=== PATIENT | female | born 1965 | race Caucasian/White ===

== ENCOUNTER 2017-12-30 07:25 | Inpatient (IN) ==
--- NOTE | 2017-12-29 17:16 | Discharge Summary ---
<Parish,Amanda E - Last Filed: 12/29/17 17:13> Date of Encounter: 12/29/17 - Discharge Diagnosis (1) Osteoarthritis of right knee Priority: Primary Status: Chronic Qualifiers: Osteoarthritis type: unspecified Qualified Code(s): M17.11 - Unilateral primary osteoarthritis, right knee (2) HTN (hypertension) Priority: Secondary Status: Chronic Qualifiers: Hypertension type: unspecified Qualified Code(s): I10 - Essential (primary ) hypertension (3) Rheumatoid arthritis Priority: Secondary Status: Chronic Qualifiers: Rheumatoid arthritis location: unspecified site Rheumatoid factor presence : unspecified presence Qualified Code(s): M06.9 - Rheumatoid arthritis, unspecified (4) HLD (hyperlipidemia) Priority: Secondary Status: Chronic Qualifiers: Hyperlipidemia type: unspecified Qualified Code(s): E78.5 - Hyperlipidemia , unspecified (5) Asthma Priority: Secondary Status: Chronic Qualifiers: Asthma severity: unspecified severity Asthma persistence: unspecified Asthma complication type: unspecified Qualified Code(s): J45.909 - Unspecified asthma, uncomplicated (6) Enlarged heart Priority: Secondary Status: Chronic (7) Obesity Priority: Secondary Status: Chronic Qualifiers: Obesity type: unspecified obesity type Obesity classification: unspecified obesity classification Serious obesity comorbidity presence: unspecified whether serious comorbidity present Qualified Code(s): E66.9 - Obesity, unspecified (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 [Rx] OxyCODONE Immed Rel [Roxicodone 5 MG] 5 mg PO Q6HR PRN 7 Days #28 tablet [Rx] Lisinopril/Hydrochlorothiazide [Zestoretic 20-12.5 mg Tablet] 1 tab PO HS [History] Mirtazapine [Remeron] 15 mg PO HS 12/30/17 [History] Allergies/Adverse Reactions: 3 Allergy/AdvReac Type Severity Reaction Status Date / Time meloxicam AdvReac Palpitation Verified 12/30/17 08:02 s Primary care physician: Kevin Garner MD - Patient Status Disposition: Home, Self-Care Condition: Good - Discharge Instructions Follow Up With: Kevin Garner MD [Primary Care Provider] - - Hospital Course Hospital course: Ms. Lr is a 52 year old female - Time Spent with Patient Total time spent providing and/or coordinating discharge services: <JoseDimitry Nix - Last Filed: 01/01/18 09:18> Date of Encounter: 01/01/18 Time of Encounter: 09:17 - Discharge Diagnosis (1) Morbid obesity with BMI of 40.0-44.9, adult Priority: Secondary Status: Chronic (2) Osteoarthritis of right knee Priority: Primary Status: Chronic Qualifiers: Osteoarthritis type: unspecified Qualified Code(s): M17.11 - Unilateral primary osteoarthritis, right knee (3) HTN (hypertension) Priority: Secondary Status: Chronic Qualifiers: Hypertension type: unspecified Qualified Code(s): I10 - Essential (primary ) hypertension (4) Rheumatoid arthritis Priority: Secondary Status: Chronic Qualifiers: Rheumatoid arthritis location: unspecified site Rheumatoid factor presence : unspecified presence Qualified Code(s): M06.9 - Rheumatoid arthritis, unspecified (5) HLD (hyperlipidemia) Priority: Secondary Status: Chronic Qualifiers: Hyperlipidemia type: unspecified Qualified Code(s): E78.5 - Hyperlipidemia , unspecified (6) Asthma Priority: Secondary Status: Chronic Qualifiers: Asthma severity: unspecified severity Asthma persistence: unspecified Asthma complication type: unspecified Qualified Code(s): J45.909 - Unspecified asthma, uncomplicated (7) Enlarged heart Priority: Secondary Status: Chronic (8) 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 Lr is a 52 year old female s/p right total knee replacement The patient had an uneventful postoperative course. They received antibiotics and physical therapy and were discharged in stable condition. There will follow -up in the office in 2 weeks. - Time Spent with Patient Total time spent providing and/or coordinating discharge services:
--- NOTE | 2017-12-29 17:18 | Physician Discharge Referral ---
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 For more information, call the [employer] Tobacco Quit Line at 2-450-CZDU-NOW. - Dressing/Wound Care Site: right knee Type of Dressing/Treatments w/Frequency: Opsite placed. Keep dressing intact until first follow up appointment. If > 50% saturated, notify office, remove dressing and place appropriate dressing back in place. Leave Zipline intact. Opsite dressing is water resistant, not water- proof. OK to shower, but do not get dressing wet. - Diet/Nutrition Diet/Nutrition Orders: Regular - Activity Activity Orders: Up ad lidya, Ambulate, Chair, Walker Activity: List: Total Knee replacement Precautions x 6 weeks Apply cold therapy wrap 3-6x/day for 20 minutes at a time. Encourage ambulation throughout the day and incentive spirometer 10x/hour. Elevate affected extremity above heart as tolerated. Brace: Wear knee immobilizer at night x 2 weeks. - Services Needed Following services are medically necessary services: Nursing, Home Health Aide, Physical Therapy, Occupational Therapy - Transfer Medications Prescriptions: OxyCODONE Immed Rel [Roxicodone 5 MG] 5 mg PO Q6HR PRN 7 Days #28 tablet PRN Reason: Severe Pain Aspirin Enteric Coated [Aspirin EC] 325 mg PO QAM 21 Days #21 tablet.dr [place] Medications: Aspirin Enteric Coated [Aspirin EC] 81 mg PO DAILY 08/17/15 [History] Duloxetine [Cymbalta] 30 mg PO BID 08/17/15 [History] Lisinopril [Zestril] 10 mg PO HS 08/17/15 [History] Tate-3S/Dha/Epa/Fish Oil [Fish Oil 1,200 mg Softgel] 1 each PO DAILY 08/17/15 [ History] Pravastatin Sodium [Pravachol] 40 mg PO HS 08/17/15 [History] Magic Mouthwash [Magic Mouthwash BLM] 10 ml PO QID PRN #240 ml 01/21/17 [Rx] predniSONE [PredniSONE] 60 mg PO DAILY 5 Days tablet 01/21/17 [Rx] Aspirin Enteric Coated [Aspirin EC] 325 mg PO QAM 21 Days #21 tablet. [Rx] OxyCODONE Immed Rel [Roxicodone 5 MG] 5 mg PO Q6HR PRN 7 Days #28 tablet [Rx] Allergies/Adverse Reactions: 3 Allergy/AdvReac Type Severity Reaction Status Date / Time meloxicam Allergy Palpitation Verified 08/09/17 13:56 s Certification: Further, I certify that my clinical findings support that this patient is homebound (i.e. absences from home require considerable and taxing effort and are for medical reasons or uatsdin services or infrequently or short duration when for other reasons) because: Homebound Reason: Post-surgery restriction and or conditions limit ability to leave home Attestation: My signature below is to certify that this patient is under my care and that I, or nurse practitioner, or a physician nurse practitioner physicians assistant working with me, has a face-to- face encounter with this patient.
[2017-12-30] MEDS ORDERED: Albuterol 2.5 MG/3 ML NEBULIZER IH ONE (07:45)
[2017-12-30] MEDS ORDERED: CeFAZolin Syr 3,000MG/30 ML 3,000 MG/30 ML SYRINGE IVPB ONE (07:45)
[2017-12-30] MEDS ORDERED: Ringers Solution, Lactated 1,000 ML IVC SCH ×2 (07:45→13:17)
[2017-12-30] MEDS ORDERED: Lidocaine -MPF 1% 2 ML VIAL ID ONE (07:45)
--- NOTE | 2017-12-30 07:59 | History & Physical Report ---
Date of Encounter: 12/30/17 Time of Encounter: 07:59 24 Hour HP Update - Instructions Instructions: If the History and Physical is less than 30 days old and was completed prior to A.M. admission and or procedure and has NOT been updated on calendar day of procedure please complete this update prior to performing procedure. - Update Patient reports changes in Medical Condition: No Changes in examination, assessment, or condition: No Changes in Medication: No Preop tests/diagnostics Reviewed: Yes Surgery Remains Indicated: Yes Consent for Planned Operative Procedure(s) Verified: Yes - Pre-Operative Checklist Preoperative Checklist Indicated: No Prophylactic Antibiotic Ordered: Yes Is VTE Prophylaxis Indicated?: Yes
--- NOTE | 2017-12-30 08:07 | Anesthesia Evaluation PreOp ---
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 [Rx] OxyCODONE Immed Rel [Roxicodone 5 MG] 5 mg PO Q6HR PRN 7 Days #28 tablet [Rx] Lisinopril/Hydrochlorothiazide [Zestoretic 20-12.5 mg Tablet] 1 tab PO HS [History] Mirtazapine [Remeron] 15 mg PO HS 12/30/17 [History] 3 Allergy/AdvReac Type Severity Reaction Status Date / Time meloxicam AdvReac Palpitation Verified 12/30/17 08:02 s - Meds/Allergy Pre-op Review Medications Reviewed: Yes Allergies Reviewed: Yes Beta Blockers on Current Med List: No Anesthesia Results - Labs Laboratory Tests 12/12/17 12/12/17 12/12/17 09:15 09:15 09:15 WBC 8.9 Hgb 13.6 Hct 41.6 Plt Count 288 PT 10.6 INR 1.0 APTT 29.1 Sodium 139 Potassium 4.4 BUN 14 Creatinine 0.82 - Imaging EKG: report reviewed (08/09/2017 SINUS RHYTHM LOW QRS VOLTAGE IN PRECORDIAL LEADS PATTERN CONSISTENT WITH PULMONARY DISEASE POOR R WAVE PROGRESSION Left axis deviation) Additional studies: 08/14/2017 Echo Impressions: LVEF 60%. Normal LV chamber size, wall thickness and function. Moderate left ventricular diastolic dysfunction. Normal right ventricular structure and function. No evidence of pulmonary hypertension. No significant valvular dysfunction. Anesthesia Exam O2 Sat Height 1.71 m Height 1.71 m Height 1.71 m Weight 122.47 kg Weight 122.47 kg Weight 122.47 kg O2 Sat by Pulse Oximetry 96 Vital Signs Temp Pulse Resp BP Pulse Ox 98.7 F 82 18 125/82 96 12/30/17 07:57 12/30/17 07:57 12/30/17 07:57 12/30/17 07:57 12/30/17 07:57 Height: 5'7.5" Weight: 270 lbs NPO (# of Hours): 8 Pain Scale: 3 (right leg) Pain Scale Used: Numeric (1 - 10) - HEENT Pupil (Motor): EOMI Mallampati: II Teeth: Normal Oral Opening: Greater than 3 - TUBE MILL OPERATOR LOC: Oriented TUBE MILL OPERATOR Motor: Normal RUE, Normal LUE, Normal RLE, Normal LLE, Normal Face TUBE MILL OPERATOR Sensory: Normal: LUE, RLE, LLE, Face, Deficit: RUE - Cardiac Rhythm: Regular Murmur: None - Pulmonary Breath Sounds: bilateral Clear Respiratory Effort: Symmetrical Anesthesia Assess/Plan ASA Score: 2 Modified Yu Scale for Level of Consciousness: Cooperative, oriented, and tranquil Anesthetic Plan: Regional Monitoring Plan: Standard Monitors Recovery Plan: PACU
[2017-12-30] MEDS ORDERED: Lidocaine -MPF 2% 2 ML VIAL ONE ×2 (08:59)
[2017-12-30] MEDS ORDERED: *HR* Propofol 200 MG/20 ML VIAL IVP ONE ×3 (08:59→11:31)
[2017-12-30] MEDS ORDERED: *HR* Midazolam HCl 2 MG/2 ML VIAL ONE (08:59)
[2017-12-30] MEDS ORDERED: Ketorolac 30 MG/ML VIAL ONE (08:59)
[2017-12-30] MEDS ORDERED: *HR* FentaNYL (PF) 100 MCG/2 ML VIAL ONE (08:59)
[2017-12-30] MEDS ORDERED: Propofol 500 MG/50 ML INFUS..BTL ONE (08:59)
[2017-12-30] MEDS ORDERED: Ethanol\\Acetic Acid\\Na Ace\\Ben 1,000 ML IRRIG.SOLN IR ONE (09:46)
[2017-12-30] MEDS ORDERED: *HR* OxyCODONE/APAP 5/325 TABLET PO PRN (10:40)
--- NOTE | 2017-12-30 10:44 | Anesthesia Procedures ---
Date of Encounter: 12/30/17 Time of Encounter: 10:10 Procedures: Anesthesia - Epidural/Spinal Patient ID/Chart reviewed: Yes Supplemental Oxygen: Nasal Cannula Supplemental Oxygen Rate (L/min): 2 Sedation: Versed (mg): 2 Sedation: Fentanyl (mcg): 80 (20MCG IN SPINAL ) Site Prep: Aseptic Technique, Sterile prep and drape, Povidone-Iodine 1% Patient position: upright Local Anesthetic: Lidocaine 1% Interspace Used: L4-L5 Blood: No CSF: Yes Paresthesia: No Spinal Needle Gauge: 24 (PENCAN 3 1/2 SPINAL NEEDLE USED) Spinal Dose: SEE OPERATIONS INTELLIGENCE SUPERINTENDENT NOTE ON ANESTHESIA RECORD Procedure: SEE OPERATIONS INTELLIGENCE SUPERINTENDENT NOTE ON ANESTHESIA RECORD Vitals + FHT's: Vital Signs - Last 8 Hours Temp Pulse Resp BP Pulse Ox 12/30/17 07:57 98.7 F 82 18 125/82 96 Intake and Output 12/29/17 12/30/17 12/30/17 23:59 07:59 15:59 Other: Weight 122.47 kg Patient Weight 12/30/17 23:59 Weight 122.47 kg
[2017-12-30] MEDS ORDERED: Acetaminophen IV 1,000 MG/100 ML INFUS..BTL ONE (11:15)
--- NOTE | 2017-12-30 11:33 | Orthopedic Operative Note ---
Date of procedure: 12/30/17 Pre-op diagnosis: Right knee arthritis Post-op diagnosis: same Procedure: Procedure: Right Total knee replacement Estimated blood loss: 200 cc Hardware: Metal and polyethylene replacement. Strength triathlon Femur: 3 Tibia: 3 tS insert: 9 Patella:36 Exam Under anesthesia: Loss of full extension 10 degrees Procedural Notes: An attempt was made to do a robotic-assisted procedure prior to any bony cuts the robot would not function case was converted to all manual. Patient with a grade 4 arthritic changes patellofemoral joint medial compartment. Operative procedure: The patient was brought to the operating room and placed on the operating room table. After general anesthesia was administered the operative knee was examined. Findings were noted in the exam under anesthesia. The operative extremity was prepped and draped in sterile surgical fashion. The patient received IV antibiotics prior to skin incision. A standard midline incision was made centered over the patella. The incision was made through the skin and subcutaneous tissue. A medial parapatellar tendon approach was performed. Care was taken to preserve tissue along the medial aspect of the patella. And to protect the patella tendon. The deep MCL was released off the medial tibia. The infra patella fat pad was excised. After landmarks were established the robot lost function was unable to proceed robotically. Knee was brought into flexion. Patient does have grade 4 arthritic changes compartment and patellofemoral joint. The entry hole was made for the intramedullary femoral guide. The guide was seated in 6 degrees of valgus. Anterior cut was made followed by the distal cut. The ACL the PCL the medial and the lateral menisci were excised. The tibia was subluxed forward. The entry hole was made for the intramedullary tibial guide. Guide was seated to resect 2 mm off the more abnormal side. The knee was brought into flexion the distal femur was sized to a 3. The femoral guide was seated, the anterior cut was made followed by the posterior condylar cut, followed by the chamfer cuts. The finishing guide was seated the box cut was made and the lug holes were drilled. The tibia was sized to a 3, the tibial tray was seated and prepared with the large drill followed by the fin cutter. Trial reduction revealed full extension no varus valgus instability with the appropriate 9 TS Cori. The patella was everted and cut was made at the level of the insertion of the quadriceps and patella tendon. The patella was sized to 36 the guide was seated and the lug holes are drilled. Trial reduction revealed excellent patella tracking. All trial components were removed all bony surfaces were irrigated. The tibia was cemented first followed by the femur. The 9 TS Cori was seated and the knee was brought into full extension. The patella was cemented and held in place with the patellar holding clamp. After the cement had hardened, the knee sat for 2 minutes with a antibacterial saline solution. The PA closed the knee. The knee was then irrigated out with 2 L of pulse irrigation. The extensor mechanism was closed with #2 FiberWire suture and #2 PDS suture. The subcutaneous tissue was then irrigated and closed deep with #1 PDS suture superficially with 0 PDS suture and skin was closed with skin jeronimo. The patient was then placed in a sterile dressing and a postoperative brace extubated and transferred to recovery room in stable condition. Anesthesia: GETA Surgeon: Dimitry Garcia Was there an acquisitions assistant present: No Estimated blood loss (cc): 200 Condition: stable Disposition: PACU
--- NOTE | 2017-12-30 12:52 | Anesthesia Evaluation Post Op ---
Date of Encounter: 12/30/17 Time of Encounter: 13:00 - Vital Signs Vital Signs: Vital Signs/O2 Sat/Glucose, Most Current Temp Pulse Resp BP Pulse Ox 12/30/17 12:45 97.3 F L 63 16 106/58 98 12/30/17 12:35 97.3 F L 66 16 96/59 99 12/30/17 12:25 65 16 96/59 98 12/30/17 12:15 67 16 96/49 97 12/30/17 12:05 97.1 F L 82 15 89/37 93 - Lungs Lungs: Clear Ascult./Percussion - Airway Airway: Non-obstructed - Cardiovascular Regular Rate - Mental Status Mental Status: Alert & Oriented, Answers Appropriately - Pain Pain Scale: 0 - Nausea Vomiting Nausea Vomiting: Not Present - Hydration Hydration: Ice chips - Discharge PostOp Status: Transfer Patient to floor
[2017-12-30 13:04] LABS: Hematocrit 36.1 % (35.3-44.9); Hemoglobin 11.7 g/dL (11.5-15.4)
[2017-12-30] MEDS ORDERED: Temazepam 15 MG CAPSULE PO PRN (13:17)
[2017-12-30] MEDS ORDERED: Naloxone 0.4 MG/ML INJ IVP PRN (13:17)
[2017-12-30] MEDS ORDERED: MOM Conc 10 ML UD.LIQ PO PRN (13:17)
[2017-12-30] MEDS ORDERED: Sennosides 8.6 MG TABLET PO PRN (13:17)
[2017-12-30] MEDS: Ondansetron 4 MG/2 ML VIAL IVP PRN ×2 (15:22→23:55)
[2017-12-30] MEDS ORDERED: *HR* Enoxaparin 30 MG/0.3 ML SYRINGE SQ SCH (18:00)
[2017-12-30] MEDS: CeFAZolin Syr 3,000MG/30 ML 3,000 MG/30 ML SYRINGE IVPB SCH ×2 (18:00→23:52)
[2017-12-30] MEDS: *HR* Enoxaparin 30 MG/0.3 ML SYRINGE SQ SCH (18:00)
[2017-12-31] MEDS: *HR* OxyCODONE/APAP 5/325 TABLET PO PRN ×2 (00:39→06:22)
[2017-12-31] MEDS: *HR* Enoxaparin 30 MG/0.3 ML SYRINGE SQ SCH ×2 (05:19→16:56)
--- NOTE | 2017-12-31 06:53 | Orthopedics Progress Note ---
Date of Encounter: 12/31/17 Time of Encounter: 06:53 - Assessment and Plan (1) Morbid obesity with BMI of 40.0-44.9, adult Current Visit: Yes Status: Chronic (2) Osteoarthritis of right knee Current Visit: No Status: Chronic Qualifiers: Osteoarthritis type: unspecified Qualified Code(s): M17.11 - Unilateral primary osteoarthritis, right knee (3) HTN (hypertension) Current Visit: No Status: Chronic Qualifiers: Hypertension type: unspecified Qualified Code(s): I10 - Essential (primary ) hypertension (4) Rheumatoid arthritis Current Visit: No Status: Chronic Qualifiers: Rheumatoid arthritis location: unspecified site Rheumatoid factor presence : unspecified presence Qualified Code(s): M06.9 - Rheumatoid arthritis, unspecified (5) HLD (hyperlipidemia) Current Visit: No Status: Chronic Qualifiers: Hyperlipidemia type: unspecified Qualified Code(s): E78.5 - Hyperlipidemia , unspecified (6) Asthma Current Visit: No Status: Chronic Qualifiers: Asthma severity: unspecified severity Asthma persistence: unspecified Asthma complication type: unspecified Qualified Code(s): J45.909 - Unspecified asthma, uncomplicated (7) Enlarged heart Current Visit: No Status: Chronic (8) 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 Afebrile vital signs stable. Operative extremity: Neurovascularly intact Dressing clean dry and intact Calves nontender Assessment and plan: Continue with postoperative care Hematocrit 36 Objective Vital signs: Vital Signs Temp Pulse Resp BP Pulse Ox 12/31/17 06:48 98.0 F 61 18 103/69 98 12/31/17 03:01 97.6 F 67 16 105/65 96 12/30/17 23:35 98.0 F 70 16 114/70 100 12/30/17 20:59 97.9 F 65 16 110/77 98 12/30/17 13:56 97.7 F 58 16 101/59 95 12/30/17 13:19 97.7 F 64 15 97/67 96 12/30/17 12:45 97.3 F L 63 16 106/58 98 12/30/17 12:35 97.3 F L 66 16 96/59 99 12/30/17 12:25 65 16 96/59 98 12/30/17 12:15 67 16 96/49 97 12/30/17 12:05 97.1 F L 82 15 89/37 93 12/30/17 07:57 98.7 F 82 18 125/82 96 Intake and Output 12/30/17 12/30/17 12/31/17 15:59 23:59 07:59 Intake Total 230 / 230 100 / 100 Output Total 200 / 200 Balance -200 / -200 230 / 230 100 / 100 Intake: IV Fluids 30 / 30 Ancef Syringe 3,000 MG/30 ML 3, 30 / 30 000 mg In 30 ml @ 200 mls/hr IVPB Q8HR FLEX Rx#:[id number] Oral 200 / 200 100 / 100 Output: Estimated Blood Loss 200 / 200 Other: # Voids 1 Weight 120.2 kg Patient Weight 12/31/17 23:59 Weight 120.2 kg - Labs CBC & BMP: 12/30/17 12:40 - VTE Documentation of Mechanical Device: Venous foot pump, device Consult Discharge Plan - Plan Referrals: Kevin Garner MD [Primary Care Provider] -
[2017-12-31 07:00] LABS: Hematocrit 36.2 % (35.3-44.9); Hemoglobin 11.5 g/dL (11.5-15.4)
[2017-12-31] MEDS ORDERED: *HR* OxyCODONE Immed Rel 5 MG TABLET PO PRN (07:11)
[2017-12-31 07:18] LABS: BUN/Creatinine Ratio 20 (6-26); Blood Urea Nitrogen 16 mg/dL (6-20); Calcium 8.6 mg/dL (8.6-10.3); Carbon Dioxide 27 mEq/L (23-29); Chloride 100 mEq/L (98-107); Glucose 127 mg/dL (70-105); Osmolality,Calculated 281 (280-300); Sodium 134 mEq/L (136-145); eGFR For African Americans > 60 (> 60); eGFR For Non-African Americans > 60 (> 60)
[2017-12-31] MEDS: *HR* OxyCODONE Immed Rel 5 MG TABLET PO PRN ×4 (08:42→21:02)
--- NOTE | 2017-12-31 16:46 | Event Note ---
Date of Encounter: 12/31/17 Time of Encounter: 12:20 PCR- POD#1 R TKR robotic Jose 12/30/17 PCR - Patient seen at bedside. Pain control: Adequate - adding Cyclobenzaprine for additional relief. Participating in PT. All questions and concerns addressed. Educated on use of incentive spirometer, ambulation, and hydration. Patient educated on post-operative restrictions and care. Addressed: see above. D/C plan: Home with home health likely tomorrow or
[2018-01-01] MEDS: *HR* OxyCODONE Immed Rel 5 MG TABLET PO PRN ×5 (01:07→16:56)
[2018-01-01] MEDS: *HR* Enoxaparin 30 MG/0.3 ML SYRINGE SQ SCH ×2 (04:58→16:54)
[2018-01-01 05:33] LABS: Hematocrit 33.6 % (35.3-44.9)
[2018-01-01 06:10] LABS: BUN/Creatinine Ratio 14 (6-26); Blood Urea Nitrogen 10 mg/dL (6-20); Calcium 8.6 mg/dL (8.6-10.3); Carbon Dioxide 28 mEq/L (23-29); Chloride 100 mEq/L (98-107); Glucose 126 mg/dL (70-105); Osmolality,Calculated 279 (280-300); Sodium 134 mEq/L (136-145); eGFR For African Americans > 60 (> 60); eGFR For Non-African Americans > 60 (> 60)
--- NOTE | 2018-01-01 09:19 | Orthopedics Progress Note ---
Date of Encounter: 01/01/18 Time of Encounter: 09:19 - Assessment and Plan (1) Morbid obesity with BMI of 40.0-44.9, adult Current Visit: Yes Status: Chronic (2) Osteoarthritis of right knee Current Visit: No Status: Chronic Qualifiers: Osteoarthritis type: unspecified Qualified Code(s): M17.11 - Unilateral primary osteoarthritis, right knee (3) HTN (hypertension) Current Visit: No Status: Chronic Qualifiers: Hypertension type: unspecified Qualified Code(s): I10 - Essential (primary ) hypertension (4) Rheumatoid arthritis Current Visit: No Status: Chronic Qualifiers: Rheumatoid arthritis location: unspecified site Rheumatoid factor presence : unspecified presence Qualified Code(s): M06.9 - Rheumatoid arthritis, unspecified (5) HLD (hyperlipidemia) Current Visit: No Status: Chronic Qualifiers: Hyperlipidemia type: unspecified Qualified Code(s): E78.5 - Hyperlipidemia , unspecified (6) Asthma Current Visit: No Status: Chronic Qualifiers: Asthma severity: unspecified severity Asthma persistence: unspecified Asthma complication type: unspecified Qualified Code(s): J45.909 - Unspecified asthma, uncomplicated (7) Enlarged heart Current Visit: No Status: Chronic (8) 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 Afebrile vital signs stable. Operative extremity: Neurovascularly intact Dressing clean dry and intact Calves nontender Assessment and plan: Continue with postoperative care Discharge today Objective Vital signs: Vital Signs Temp Pulse Resp BP Pulse Ox 01/01/18 07:38 98.0 F 77 16 119/76 95 01/01/18 07:00 98.5 F 78 18 138/76 96 01/01/18 04:43 98.3 F 75 20 136/80 94 12/31/17 23:22 98.6 F 78 18 137/73 99 12/31/17 19:50 98.2 F 82 18 115/74 100 12/31/17 15:09 98.9 F 63 18 109/70 94 12/31/17 11:14 98.1 F 68 18 105/68 98 Intake and Output 12/31/17 01/01/18 01/01/18 23:59 07:59 15:59 Intake Total 710 / 710 Balance 710 / 710 Intake: Oral 710 / 710 Other: Meal Dinner Percent of Meal Consumed 85% # Voids 1 1 Weight 120.83 kg Patient Weight 01/01/18 23:59 Weight 120.83 kg - Labs CBC & BMP: 01/01/18 05:16 01/01/18 05:16 Labs: Abnormal lab results Hgb 11.0 g/dL (11.5-15.4) L 01/01/18 05:16 Hct 33.6 % (35.3-44.9) L 01/01/18 05:16 Sodium 134 mEq/L (136-145) L 01/01/18 05:16 Glucose 126 mg/dL (70-105) H 01/01/18 05:16 Calculated Osmolality 279 (280-300) L 01/01/18 05:16 - VTE Documentation of Mechanical Device: Venous foot pump, device Consult Discharge Plan - Plan Referrals: Kevin Garner MD [Primary Care Provider] -
[2018-01-01 14:58] VITALS: BP 114/71
== END 2018-01-01 19:35 | disposition home or self-care (01) | DRG 302 ==
LOC: SAMDAY 07:25 → 3NENU 13:18
PROVIDERS: ADMIT Orthopaedic Surgery; ATTEND Orthopaedic Surgery